=== PATIENT | male | born 1985 | race Caucasian/White ===

== ENCOUNTER 2022-05-01 11:12 | Emergency (ER) | payer OTHER, SELFPAY ==
[2022-05-01 11:23] VITALS: BP 151/89; PULSE 81; RESP 12; TEMP 36.5; O2SAT 97; BMI 26.9
--- NOTE | 2022-05-01 13:10 | ED.BACK ---
HPI - Back Pain/Injury <JOAO Elliott - Last Filed: 05/01/22 15:10> General Chief Complaint: Back Pain/Injury Stated Complaint: lower back - bulging disk Time Seen by Provider: 05/01/22 13:10 History of Present Illness HPI Narrative: 37 year old male with history of bulging disc L4-L5 who presents to the emergency department on vacation with exacerbation of his low back injury from 2014 with sciatica symptoms down his left leg. He states that this has happened to him in the past but not for quite some time. He states that he sewed up and twisted the other day in just a way that he had sharp onset of pain in his lumbar spine, sciatic symptoms following this occasionally down his left leg he states it goes down to his knee. He denies taking any pain medication prior to his arrival, states that he is in [facility] for the next two weeks, prior to going back home to [place]. He denies any new weakness, incontinence, denies any new new sensation changes down his leg that are persistent. This he denies any muscle spasm states that muscle relaxers have not been a helpful for him in the past. Related Data Previous Rx's Medication Instructions Recorded hydrocodone 5 mg-acetaminophen 325 1 tab PO BID PRN pain #14 tabs 05/01/22 mg tablet ibuprofen 800 mg tablet 800 mg PO Q8H PRN pain #20 tabs 05/01/22 lidocaine 5 % topical patch 1 patch topical DAILY PRN pain #15 05/01/22 (Lidoderm) ea pantoprazole 20 mg tablet,delayed 20 mg PO QAM #14 tabs 05/01/22 release (Protonix) prednisone 50 mg tablet 50 mg PO DAILY 5 days #5 tabs 05/01/22 Allergies Allergy/AdvReac Type Severity Reaction Status Date / Time tramadol Allergy Hives Verified 05/01/22 11:26 Review of Systems <JOAO Elliott - Last Filed: 05/01/22 15:10> Review of Systems Narrative: General: denies fever, chills Head/Neck: denies headache, neck pain Eyes: denies visual changes, eye pain Cardio: denies chest pain, palpitations Respiratory: denies shortness of breath, cough GI: denies abdominal pain, nausea, vomiting, or diarrhea : denies dysuria, hematuria or flank pain MSK: denies new joint pain, muscle weakness or swelling, endorses low back pain with sciatic symptoms down his left leg that occasionally occur and are sharp Skin: denies rash, itching or wound Neuro: denies numbness, persistent numbness or tingling, denies any dizziness Patient History <JOAO Elliott - Last Filed: 05/01/22 15:10> Social History Smoking Status: Never smoker Smoking Status: Never smoker alcohol intake frequency: 3 or more drinks per day Substance Use Type: does not use Exam <JOAO Elliott - Last Filed: 05/01/22 15:10> Narrative Exam Narrative: Independently reviewed vitals signs and nursing notes. General: Awake, alert, nontoxic, no cardiorespiratory distress Head/Neck: Atraumatic, neck supple Eyes: EOMI, conjunctiva normal Nose: nares patent, no rhinorrhea Mouth/Throat: moist mucus membranes Cardio: Regular rate and rhythm, no peripheral edema Respiratory: respirations unlabored without wheezing, stridor, or rales. No retractions, hypoxia or tachypnea GI: Abdomen soft, nontender to palpation x4 quadrants, no guarding or rebound tenderness MSK: Moves all extremities, neurovascularly intact, range of motion without deficit, leg lift illicits exacerbation of lumbar pain, patient is ambulatory without weakness, strength is equal bilaterally without obvious difference, no tenderness along lumbar spine, no bulging, step-offs, or comments Skin: Normal capillary refill, no rash Neuro: Normal speech and cognition, normal gait Initial Vital Signs Initial Vital Signs: Vital Signs Temperature 97.7 F 05/01/22 11:23 Pulse Rate 81 05/01/22 11:23 Respiratory Rate 12 05/01/22 11:23 Blood Pressure 151/89 H 05/01/22 11:23 Pulse Oximetry 97 05/01/22 11:23 Oxygen Delivery Method 05/01/22 11:23 <Marcia Washington DO - Last Filed: 05/02/22 07:20> Initial Vital Signs Initial Vital Signs: Vital Signs Temperature 97.7 F 05/01/22 11:23 Pulse Rate 81 05/01/22 11:23 Respiratory Rate 12 05/01/22 11:23 Blood Pressure 151/89 H 05/01/22 11:23 Pulse Oximetry 97 05/01/22 11:23 Oxygen Delivery Method 05/01/22 11:23 Course <JOAO Elliott - Last Filed: 05/01/22 15:10> Orders Ordered: Discontinued Medications Hydrocodone Bitart/Acetaminophen (Hydrocodone/Acet 5/325 Tablet) 1 tab PO NOW ONE Stop: 05/01/22 13:17 Last Admin: 05/01/22 13:29 Dose: 1 tab Documented By: PAPI Ketorolac Tromethamine (Ketorolac 30 Mg/Ml Vial) 30 mg IM NOW ONE Stop: 05/01/22 13:17 Last Admin: 05/01/22 13:29 Dose: 30 mg Documented By: PAPI Lidocaine (Lidocaine Patch 1 Each Adh..Patch) 1 each TOP NOW ONE Stop: 05/01/22 13:17 Last Admin: 05/01/22 13:28 Dose: 1 each Documented By: PAPI Pantoprazole Sodium (Pantoprazole Dr 20 Mg Tablet) 20 mg PO NOW ONE Stop: 05/01/22 13:17 Last Admin: 05/01/22 13:28 Dose: 20 mg Documented By: PAPI Prednisone (Prednisone 20 Mg Tablet) 60 mg PO NOW ONE Stop: 05/01/22 13:17 Last Admin: 05/01/22 13:28 Dose: 60 mg Documented By: PAPI Vital Signs Vital signs: Vital Signs - 8 hr 05/01/22 11:23 05/01/22 13:36 Temperature 97.7 F Pulse Rate 81 75 Respiratory Rate 12 18 Blood Pressure 151/89 H 150/80 H Pulse Oximetry 97 98 Oxygen Delivery Method Room Air Room Air <Marcia Washington DO - Last Filed: 05/02/22 07:20> Orders Ordered: Discontinued Medications Hydrocodone Bitart/Acetaminophen (Hydrocodone/Acet 5/325 Tablet) 1 tab PO NOW ONE Stop: 05/01/22 13:17 Last Admin: 05/01/22 13:29 Dose: 1 tab Documented By: PAPI Ketorolac Tromethamine (Ketorolac 30 Mg/Ml Vial) 30 mg IM NOW ONE Stop: 05/01/22 13:17 Last Admin: 05/01/22 13:29 Dose: 30 mg Documented By: PAPI Lidocaine (Lidocaine Patch 1 Each Adh..Patch) 1 each TOP NOW ONE Stop: 05/01/22 13:17 Last Admin: 05/01/22 13:28 Dose: 1 each Documented By: PAPI Pantoprazole Sodium (Pantoprazole Dr 20 Mg Tablet) 20 mg PO NOW ONE Stop: 05/01/22 13:17 Last Admin: 05/01/22 13:28 Dose: 20 mg Documented By: PAPI Prednisone (Prednisone 20 Mg Tablet) 60 mg PO NOW ONE Stop: 05/01/22 13:17 Last Admin: 05/01/22 13:28 Dose: 60 mg Documented By: PAPI Vital Signs Vital signs: Vital Signs - 8 hr 05/01/22 11:23 05/01/22 13:36 Temperature 97.7 F Pulse Rate 81 75 Respiratory Rate 12 18 Blood Pressure 151/89 H 150/80 H Pulse Oximetry 97 98 Oxygen Delivery Method Room Air Room Air MDM - Back Pain/Injury <JOAO Elliott - Last Filed: 05/01/22 15:10> MDM Narrative Medical decision making narrative: This is a pleasant 37-year-old male who is on vacation to [facility] from [place] and presents to the emergency department for acute exacerbation of low back pain from reported bulging disc between L4 and L5 with sciatica down his left leg to his left knee. He states that this is been painful for the last two days, states occasionally he has sharp twinges of pain down his left leg. Patient had taken any medication prior to his arrival. Discussed imaging, patient denies any recent trauma, states that he has a primary care provider back home and a physical therapist that he will follow up with his soon as he gets back. Denies any weakness, on exam there is no step-offs or significant tenderness over his lumbar spine. Patient was given a lidocaine patch, Toradol IM injection, prednisone and Protonix. Recommend he take a PPI while taking ibuprofen for the next few days, in prednisone for five days for his acute back pain exacerbation. He was given hydrocodone as needed for pain, mention that muscle relaxers do not help him. Discussed side effects of narcotic medications, encouraged him to eat food with his steroid in anti-inflammatory, he was prescribed Protonix to help prevent GI ulcer. Patient understands to follow-up with his primary care provider and physical therapy when he gets back home, was given strict return precautions for any new weakness, sensation changes, incontinence, or other. Multiple etiologies of back pain considered including; Epidural abscess, cauda equina, mass occupying lesion, lumbar fracture, intra-abdominal pathology chronic neuropathic pain and other considered Patient is appropriate and amenable to discharge home. Vital signs are stable on repeat examination is unremarkable. Patient has been informed of results. Patient has been given strict return to ER precautions for any new or worsening symptoms. Patient understands to follow up closely with outpatient providers as instructed. Patient understands plan and agrees to discharge home. All questions and concerns answered at this time. Discharge Plan Departure Patient Disposition: Home Clinical Impression: Strain of lumbar region Qualifiers: Encounter type: initial encounter Qualified Code(s): S39.012A - Strain of muscle, fascia and tendon of lower back, initial encounter Sciatica Qualifiers: Laterality: left Qualified Code(s): M54.32 - Sciatica, left side Instructions: DI for Back Pain With Sciatica Activity Restrictions/Additional Instructions: *You have been diagnosed with exacerbation of your low back disc injury with sciatica down your left leg. Please take the Protonix 1st thing in the morning before food or water while you are taking steroids and anti-inflammatories for your pain. This will help prevent stomach ulcer. Take one dose of prednisone for the next five days, this will calm down the inflammation, take ibuprofen every 8 hours as needed for pain with hydrocodone, always take these medications with food and water except for the Protonix. Please use a lidocaine patch, gentle range of motion and stretching, light activity like walking, let pain be your guide, do not push beyond the pain. I hope you feel better soon. Get into physical therapy when you get home, focus on strengthening your core. *What to do: *Please continue to take your regular medications as directed. [x ] New medication prescriptions sent to your pharmacy: [ [facility]] [ ] New medication written as a paper prescription [ ] No new medications given *Please follow up with your primary care provider in 2-3 days, call for an appointment. Let them know you were seen in the Emergency Department and that we asked that you be seen for follow-up. We will electronically transmit a record of today's note if your PCP is in our system *If you do not have a primary care provider please contact [phone] to establish care with one of the [facility] primary care providers. *Return to Emergency Department if you should have any new, worsening or concerning symptoms, such as [fever greater than 101F, chills, worsening pain, persistent vomiting or other bothersome symptoms] Prescriptions: New prednisone 50 mg tablet 50 mg PO DAILY 5 Days Qty: 5 0RF hydrocodone-acetaminophen 5-325 mg tablet 1 tab PO BID PRN (Reason: pain) Qty: 14 0RF lidocaine [Lidoderm] 5 % adhesive patch,medicated 1 patch topical DAILY PRN (Reason: pain) Qty: 15 0RF Rx Instructions: leave on most painful area for up to 12 hrs ibuprofen 800 mg tablet 800 mg PO Q8H PRN (Reason: pain) Qty: 20 0RF pantoprazole [Protonix] 20 mg tablet,delayed release (DR/EC) 20 mg PO QAM Qty: 14 0RF Rx Instructions: Take on empty stomach Visit Report Forms: Patient Portal/API <Marcia Washington DO - Last Filed: 05/02/22 07:20> Cosign ED Attending Cosmauature Attestation: I was immediately available in the department for consultation. Documentation has been reviewed. I agree with assessment and plan.
[2022-05-01] MEDS: LIDOCAINE PATCH 1 EACH ADH..PATCH TOP (13:28)
[2022-05-01] MEDS: predniSONE 20 MG TABLET 60 MG PO (13:28)
[2022-05-01] MEDS: PANTOPRAZOLE DR 20 MG TABLET PO (13:28)
[2022-05-01] MEDS: KETOROLAC 30 MG/ML VIAL IM (13:29)
[2022-05-01] MEDS: HYDROCODONE/ACET 5/325 TABLET 1 TAB PO (13:29)
[2022-05-01 13:36] VITALS: BP 150/80; PULSE 75; RESP 18; O2SAT 98
== END 2022-05-01 13:36 | disposition home or self-care (01) ==
PROVIDERS: Emergency Provider Nurse Practitioner Critical Care Medicine
DX: S39.012A Strain of muscle, fascia and tendon of lower back, initial encounter (principal); M54.32 Sciatica, left side
CPT/HCPCS: 96372; 99283; J1885

== ENCOUNTER 2023-05-04 15:25 | Emergency (ER) | payer OTHER, SELFPAY ==
[2023-05-04 15:36] VITALS: BP 134/71; PULSE 71; RESP 14; TEMP 36.6; O2SAT 98; BMI 27.1
--- NOTE | 2023-05-04 15:40 | DI.RAD.S_ITS ---
PROCEDURE: XR HIP W PEL IF DONE RT 2V INDICATIONS: hip pain w/o injury TECHNIQUE: AP pelvis with lateral view(s) of the right hip(s). COMPARISON: None. FINDINGS: Bones: No fractures or dislocations. Pelvic ring appears intact. No suspicious bony lesions. Soft tissues: The visualized bowel gas pattern is normal. No suspicious soft tissue calcifications. IMPRESSION: No trauma found. No appreciable source of asymmetric right-sided hip pain is seen. Dictated by: Akshat Villanueva M.D. on 05/04/2023 at 16:46 Approved by: Akshat Villanueva M.D. on 05/04/2023 at 16:47
--- NOTE | 2023-05-04 17:48 | PC.NURSE ---
Patient reports right hip pain for months, worse the last 5 days with pain shooting down mu leg. No known injury. Has bulging discs at L4-L5. Also reports multiple family members with hip replacements.
[2023-05-04 17:51] VITALS: BP 125/67; PULSE 66; RESP 16; O2SAT 99
--- NOTE | 2023-05-04 18:16 | ED.EXTPRO ---
HPI - Extremity Problem General Chief complaint: Extremity Problem,Nontraumatic Stated complaint: R leg pains Time Seen by Provider: 05/04/23 18:10 Source: patient Mode of arrival: Ambulatory Related Data Previous Rx's Medication Instructions Recorded hydrocodone 5 mg-acetaminophen 325 1 tab PO BID PRN pain #14 tabs 05/01/22 mg tablet ibuprofen 800 mg tablet 800 mg PO Q8H PRN pain #20 tabs 05/01/22 lidocaine 5 % topical patch 1 patch topical DAILY PRN pain #15 05/01/22 (Lidoderm) ea pantoprazole 20 mg tablet,delayed 20 mg PO QAM #14 tabs 05/01/22 release (Protonix) Allergies Allergy/AdvReac Type Severity Reaction Status Date / Time tramadol Allergy Hives Verified 05/04/23 15:36 Patient History Social History Smoking Status: Never smoker Smoking Status: Never smoker alcohol intake frequency: 3 or more drinks per day Substance Use Type: does not use Exam Initial Vital Signs Initial Vital Signs: Vital Signs Temperature 97.8 F 05/04/23 15:36 Pulse Rate 71 05/04/23 15:36 Respiratory Rate 14 05/04/23 15:36 Blood Pressure 134/71 05/04/23 15:36 Pulse Oximetry 98 05/04/23 15:36 Oxygen Delivery Method Room Air 05/04/23 15:36 Course Orders Ordered: ED Orders 05/04/23 15:40 XR hip w pel if done RT 2V Stat Vital Signs Vital signs: Vital Signs - 8 hr 05/04/23 15:36 05/04/23 17:51 Temperature 97.8 F Pulse Rate 71 66 Respiratory Rate 14 16 Blood Pressure 134/71 125/67 Pulse Oximetry 98 99 Oxygen Delivery Method Room Air Room Air Discharge Plan Departure Prescriptions: No Action hydrocodone-acetaminophen 5-325 mg tablet 1 tab PO BID PRN (Reason: pain) Qty: 14 0RF lidocaine [Lidoderm] 5 % adhesive patch,medicated 1 patch topical DAILY PRN (Reason: pain) Qty: 15 0RF Rx Instructions: leave on most painful area for up to 12 hrs ibuprofen 800 mg tablet 800 mg PO Q8H PRN (Reason: pain) Qty: 20 0RF pantoprazole [Protonix] 20 mg tablet,delayed release (DR/EC) 20 mg PO QAM Qty: 14 0RF Rx Instructions: Take on empty stomach
== END 2023-05-04 18:41 | disposition left against medical advice (07) ==
PROVIDERS: Emergency Provider Emergency Medicine
DX: M25.551 Pain in right hip (principal)
CPT/HCPCS: 73502; 99283